=== PATIENT | male | born 1975 | race Caucasian/White ===

== ENCOUNTER 2017-04-27 12:13 | Day surgery (SDC) | payer MEDICAID ==
[2017-04-27] MEDS ORDERED: LIDOCAINE 1% 300 MG/30 ML SDV ONE (14:32)
[2017-04-27] MEDS ORDERED: TRIAMCINOLONE ACETONIDE 200 MG/5 ML MDV IM ONE (14:33)
== END 2017-04-27 15:12 | disposition home or self-care (01) ==
LOC: FIMAGING 12:13
PROVIDERS: ATTEND Neurological Surgery
PROC: 3E0S3BZ Introduction of Anesthetic Agent into Epidural Space, Percutaneous Approach (ICD-10-PCS; principal; 2017-04-27)
PROC: 3E0S33Z Introduction of Anti-inflammatory into Epidural Space, Percutaneous Approach (ICD-10-PCS; principal; 2017-04-27)
DX: M54.9 Dorsalgia, unspecified (principal); S32.030S Wedge compression fracture of third lumbar vertebra, sequela; Z98.1 Arthrodesis status
CPT/HCPCS: J3301